=== PATIENT | female | born 1960 | race African-American/Black ===

== ENCOUNTER 2023-02-11 20:47 | Emergency (ER) | payer OTHER | END 2023-02-11 22:14 | disposition home or self-care (01) | LOC: NAV ERS 20:47 | DX: S13.9XXA Sprain of joints and ligaments of unspecified parts of neck, initial encounter (principal); E05.90 Thyrotoxicosis, unspecified without thyrotoxic crisis or storm; I10 Essential (primary) hypertension; F17.210 Nicotine dependence, cigarettes, uncomplicated; V43.52XA Car driver injured in collision with other type car in traffic accident, initial encounter | CPT/HCPCS: 72125 ==